=== PATIENT | female | born 1985 | race Caucasian/White ===

== ENCOUNTER 2019-05-11 03:48 | Emergency (ER) | payer OTHER ==
[~2019-05-11] VITALS: Ht 165.1 cm; Wt 79.4 kg
[2019-05-11] MEDS ORDERED: OMEPRAZOLE20 MG PO (06:45)
== END 2019-05-11 07:30 | disposition home or self-care (01) ==
LOC: ED 03:48
DX: K29.00 Acute gastritis without bleeding (principal); Z88.5 Allergy status to narcotic agent
CPT/HCPCS: 76705; 80053; 81001; 83690; 83735; 84703; 85025; 96374; 96375; 99284-25; J1170; J2405

== ENCOUNTER 2020-11-03 18:03 | Emergency (ER) | payer OTHER ==
[~2020-11-03] VITALS: Ht 165.1 cm; Wt 81.7 kg
[~2020-11-03 18:03] MED LIST: OMEPRAZOLE20 MG PO
[2020-11-03] MEDS ORDERED: ZYRTEC10 MG PO (18:27)
[2020-11-03] MEDS ORDERED: BOSWELLIA SERRAT1 GM MISC (18:28)
[2020-11-03] MEDS ORDERED: 5-HTP100 MG PO (18:28)
[2020-11-03] MEDS ORDERED: PROBIOTIC1 EAC3 PO (18:29)
[2020-11-03] MEDS ORDERED: MELATIN3 MG PO (18:29)
== END 2020-11-03 19:20 | disposition home or self-care (01) ==
LOC: ED 18:03
DX: S01.01XA Laceration without foreign body of scalp, initial encounter (principal); Z23 Encounter for immunization; V43.52XA Car driver injured in collision with other type car in traffic accident, initial encounter; Z88.5 Allergy status to narcotic agent; Z79.899 Other long term (current) drug therapy
CPT/HCPCS: 12002; 90471; 90715; 99284-25